=== PATIENT | female | born 1985 | race Caucasian/White ===

== ENCOUNTER 2017-06-16 02:44 | Emergency (ER) | payer MEDICAID ==
[~2017-06-16] VITALS: Ht 162.6 cm; Wt 90.0 kg
[~2017-06-16 02:44] MED LIST: PRENATAL VITAMINS
[2017-06-16 02:47] VITALS: Ht 162.6 cm; Wt 90.0 kg
--- NOTE | 2017-06-16 03:46 | ERA ---
ER Documentation Chief Complaint Date/Time DATE: 06/16/17 TIME: 03:45 Chief Complaint upper abd pain radaiting to back since 4 hours ago HPI The patient is a 31-year-old female, presenting to the ER because of epigastric and topical abdominal pain that began about 11 PM, she has similar symptoms previously, denies fever, chills, neck pain, chest pain, nausea, vomiting, dysuria, diarrhea. She does not smoke or drink past medical history: Cholelithiasis Past surgical history: Appendectomy, 2 ROS All systems reviewed and are negative except as per history of present illness. Medications Home Meds Active Scripts Ibuprofen* (Motrin*) 600 Mg Tab, 600 MG PO Q6, #20 TAB Prov:NAVA GILBERT MD 06/16/17 Discontinued Reported Medications [ Vitamins] No Conflict Check 09/04/10 Allergies Allergies: Coded Allergies: No Known Drug Allergies (Verified Allergy, Mild, 09/04/10) PMhx/Soc History of Surgery: Yes (2006 APPENDECTOMY 2005 ) Anesthesia Reaction: No Hx Neurological Disorder: No Hx Respiratory Disorders: No Hx Cardiac Disorders: No Hx Psychiatric Problems: No Hx Miscellaneous Medical Probl: No Hx Alcohol Use: No Hx Substance Use: No Hx Tobacco Use: No Physical Exam Vitals Vital Signs Date Time Temp Pulse Resp B/P Pulse Ox O2 Delivery O2 Flow Rate FiO2 06/16/17 06:04 66 13 128/68 98 Room Air 06/16/17 04:34 66 13 135/81 98 Room Air 06/16/17 02:47 98.6 71 20 134/77 98 Physical Exam Const: No acute distress. Head: Atraumatic. Eyes: Normal Conjunctiva. ENT: Normal External Ears, Nose and Mouth. Neck: Full range of motion. No meningismus. Resp: Clear to auscultation bilaterally. Cardio: Regular rate and rhythm. Abd: Soft, non distended, normal bowel sounds, mild epigastric and right upper quadrant tenderness, no rigidity, rebound, CVA tenderness Skin: No petechiae or rashes. Back: No midline or flank tenderness. Ext: No cyanosis, or edema. Neur: Awake and alert. No focal deficit Psych: Normal Mood and Affect. Result Diagram: 06/16/17 0405 06/16/17 0405 Results 24 hrs Laboratory Tests Test 06/16/17 04:05 06/16/17 04:19 White Blood Count 7.510^3/ul Red Blood Count 4.4110^6/ul Hemoglobin 12.8g/dl Hematocrit 39.6% Mean Corpuscular Volume 89.8fl Mean Corpuscular Hemoglobin 29.0pg Mean Corpuscular Hemoglobin Concent 32.3g/dl Red Cell Distribution Width 13.0% Platelet Count 27980^3/UL Mean Platelet Volume 10.9fl Neutrophils % 63.7% Lymphocytes % 26.8% Monocytes % 6.0% Eosinophils % 2.7% Basophils % 0.5% Nucleated Red Blood Cells % 0.0/100WBC Neutrophils # (Manual) 4.810^3/ul Lymphocytes # 2.010^3/ul Monocytes # 0.510^3/ul Eosinophils # 0.210^3/ul Basophils # 0.010^3/ul Nucleated Red Blood Cells # 0.010^3/ul Sodium Level 146mmol/L Potassium Level 3.8mmol/L Chloride Level 101mmol/L Carbon Dioxide Level 30mmol/L Anion Gap 19 Blood Urea Nitrogen 14mg/dl Creatinine 0.81mg/dl Glucose Level 113mg/dl Calcium Level 9.6mg/dl Total Bilirubin 0.1mg/dl Direct Bilirubin 0.00mg/dl Indirect Bilirubin 0.1mg/dl Aspartate Amino Transf (AST/SGOT) 15IU/L Alanine Aminotransferase (ALT/SGPT) 32IU/L Alkaline Phosphatase 101IU/L Total Protein 7.9g/dl Albumin 4.3g/dl Globulin 3.60g/dl Albumin/Globulin Ratio 1.19 Lipase 86U/L Bedside Urine pH (LAB) 5.5 Bedside Urine Protein (LAB) Negative Bedside Urine Glucose (UA) Negative Bedside Urine Ketones (LAB) Negative Bedside Urine Blood 1+ Bedside Urine Nitrite (LAB) Negative Bedside Urine Leukocyte Esterase (L Trace Current Medications Medications (Trade) Dose Ordered Sig/Alysia Route PRN Reason Start Time Stop Time Status Last Admin Dose Admin Sodium Chloride (NS) 1,000 ml @ 1,000 mls/hr Q1H ONCE IV 06/16/17 04:00 06/16/17 04:59 DC 06/16/17 04:07 Morphine Sulfate (morphine) 2 mg ONCE ONCE IV 06/16/17 04:00 06/16/17 04:01 DC Ondansetron HCl (Zofran Inj) 4 mg ONCE STAT IV 06/16/17 03:57 06/16/17 03:59 DC Procedures/MDM MEDICAL MAKING DECISION: The patient is a 31-year-old female, presenting with acute biliary colic. I have offered pain medication however she declined, she was treated with 1 L normal saline for clinical dehydration with good response The differential diagnoses considered include but are not limited to cholelithiasis, cholecystitis, cystitis, pancreatitis, hepatitis, gastritis, peptic ulcer disease, gastric ulcer, appendicitis, diverticulitis, cholangitis, choledocholithiasis, partial small bowel obstruction. Departure Diagnosis: Primary Impression: Biliary colic Condition: Good Comments I discussed the findings with the patient. I advised the patient to follow-up with the general surgeon Dr. Valverde in about 1-2 days, sooner if needed and return if any concern. The patient's blood pressure was elevated (>120/80) but appears stable without evidence of hypertension emergency or urgency. The patient was counseled about the risks of hypertension and urged to pursue outpatient monitoring and therapy within a week with their primary care physician. She was discharged with NAVA Vieyra MD Jun 16, 2017 03:44
[2017-06-16] MEDS ORDERED: ONDANSETRON 4 MG INJ IV STA (03:57)
[2017-06-16] MEDS ORDERED: morphine 2 MG INJ IV ONE (04:00)
[2017-06-16] MEDS ORDERED: SOD CHLORIDE 0.9% 1,000 ML IV ONE (04:00)
[2017-06-16 04:13] LABS: URINE BLOOD (Dip) POC 1+ (NEGATIVE)
[2017-06-16 04:26] LABS: BASOPHILS % 0.5 % (0.0-2.0); EOSINOPHILS # 0.2 10^3/ul (0.0-0.5); EOSINOPHILS % 2.7 % (0.0-7.0); HEMATOCRIT 39.6 % (37.0-47.0); HEMOGLOBIN 12.8 g/dl (12.0-16.0); LYMPHOCYTES % 26.8 % (15.0-51.0); MEAN CORPUSCULAR HGB CONC 32.3 g/dl (32.0-37.0); MEAN CORPUSCULAR VOLUME 89.8 fl (82.0-101.0); MEAN PLATELET VOLUME 10.9 fl (7.4-10.4); MONOCYTE # 0.5 10^3/ul (0.3-0.9); NEUTROPHILS % 63.7 % (39.0-77.0); PLATELET COUNT 323 10^3/UL (140-415); RED BLOOD COUNT 4.41 10^6/ul (4.20-5.40); WHITE BLOOD COUNT 7.5 10^3/ul (4.8-10.8)
[2017-06-16 04:46] LABS: ALBUMIN 4.3 g/dl (3.3-4.9); ALBUMIN/GLOBULIN RATIO 1.19; BILIRUBIN,INDIRECT 0.1 mg/dl (0-1.1); BILIRUBIN,TOTAL 0.1 mg/dl (0.2-1.3); CALCIUM 9.6 mg/dl (8.4-10.2); CREATININE 0.81 mg/dl (0.44-1.00); POTASSIUM 3.8 mmol/L (3.5-5.1); TOTAL PROTEIN 7.9 g/dl (6.1-8.1)
[2017-06-16] MEDS ORDERED: IBUP-1542 PO (05:45)
[2017-06-16 06:04] VITALS: BP 128/68; PULSE 66; RESP 13
== END 2017-06-16 06:05 | disposition home or self-care (01) ==
LOC: E/R 02:44
DX: K80.50 Calculus of bile duct without cholangitis or cholecystitis without obstruction (principal)
CPT/HCPCS: 36415; 80053; 81003; 83690; 85025; J2405; J7030; Z7502; J2270

== ENCOUNTER 2018-07-02 18:40 | Emergency (ER) | END 2018-07-02 23:30 | disposition home or self-care (01) ==